=== PATIENT | male | born 2000 | race African-American/Black ===

== ENCOUNTER 2024-03-24 20:39 | Outpatient (CLI) | payer SELFPAY | END 2024-03-24 23:59 | disposition critical access hospital (66) | LOC: EMS 20:39 | DX: F41.9 Anxiety disorder, unspecified (principal); R45.1 Restlessness and agitation; Z78.1 Physical restraint status; F19.90 Other psychoactive substance use, unspecified, uncomplicated | CPT/HCPCS: A0425; A0427 ==

== ENCOUNTER 2024-03-24 21:20 | Emergency (ER) | payer SELFPAY ==
[2024-03-24] MEDS: HALOPERIDOL 5 MG/ML VIAL IM STA (21:30)
[2024-03-24] MEDS: diphenhydrAMINE INJ 50 MG/ML VIAL IM STA (21:30)
[2024-03-24] MEDS: LORazepam 2 MG/ML VIAL IM STA (21:30)
--- NOTE | 2024-03-24 21:36 | ED Physician Documentation ---
History of Present Illness - Stated complaint Stated Complaint: AMS - Chief complaint Chief Complaint: MHE - History obtained from History obtained from: Patient - Additonal information Additional information: 23yM presents after smoking marijuana that was laced with another substance and becoming anxious, agitated. He was unable to calm himself down after doing calming exercises like showering and breathing slowly therefore he called ems. en route patient jumped out of the ambulance and ran away down the highway. police assisted him back into ems rig. patient received 1mg ativan en route. denies si/hi/avh. aoX3. patient arrived in physical restraints, acting bizarrely and intermittently yelling. PD PAST MEDICAL HISTORY - Past Medical History Past Medical History: No - Past Surgical History Past Surgical History: No - Present Medications Home Medications: Ambulatory Orders Medication Instructions Recorded Confirmed No Known Home Medications 03/24/24 03/24/24 - Allergies Allergies/Adverse Reactions: Allergies Allergy/AdvReac Type Severity Reaction Status Date / Time No Known Drug Allergies Allergy Verified 03/24/24 21:34 - Social History Does the pt smoke?: Yes Smoking Status: Current every day smoker Does the pt have substance abuse?: Yes Substance Use and Type: Marijuana PD ED PE NORMAL - Vitals Vital signs reviewed: Yes - General General: Alert and oriented X 3, No acute distress, Well developed/nourished, Other (intoxicated appearing) - HEENT HEENT: Atraumatic, PERRL, EOMI - Neck Neck: Supple, no meningeal sign - Cardiac Cardiac: RRR - Respiratory Respiratory: No respiratory distress, Clear bilaterally - Derm Derm: Normal color, Warm and dry - Extremities Extremities: No deformity - Neuro Neuro: Alert and oriented X 3, No motor deficit, No sensory deficit - Psych Psych: Other (agitated, intermittently yelling with labile affect) Results - Vitals Vitals: Vital Signs - 24 hr 03/24/24 03/24/24 03/24/24 21:29 21:31 21:33 Temperature 37.2 C 37.2 C Heart Rate 130 H 130 H 116 H Respiratory 22 20 17 Rate Blood Pressure 120/104 H 120/104 H 120/104 H O2 Saturation 100 100 98 03/24/24 03/25/24 03/25/24 22:01 00:59 01:21 Temperature 36.2 C L Heart Rate 92 69 66 Respiratory 19 19 14 Rate Blood Pressure 90/55 L 86/57 L 93/58 L O2 Saturation 96 97 97 Oxygen O2 Source Room air - EKG (time done) 2218 EKG releavant findings:: EKG personally interpreted by author of this note. Relevant findings are: Rate: Rate (enter#) (100) Rhythm: Sinus tachycardia [place]: Normal Intervals: Normal [place] QRS: Normal Ischemia: ST elevation c/w repol Computer interpretation: Disagree with computer (no evidence of ischemia) - Labs Labs: Laboratory Tests 03/24/24 03/24/24 21:45 21:45 WBC 6.3 RBC 4.65 L Hgb 12.9 L Hct 39.6 L MCV 85.2 MCH 27.7 MCHC 32.6 RDW 12.4 Plt Count 100 L MPV 12.4 H Neut # (Auto) 4.3 Lymph # (Auto) 1.5 Alfalfa # (Auto) 0.4 Eos # (Auto) 0.1 Baso # (Auto) 0.0 Absolute Nucleated RBC 0.00 Nucleated RBC % 0.0 Sodium 135 Potassium 3.3 L Chloride 103 Carbon Dioxide 24 Anion Gap 8.0 BUN 19 Creatinine 1.1 Estimated GFR (MDRD) 83 L Glucose 145 H Calcium 9.7 Magnesium 1.5 L Total Bilirubin 0.3 AST 15 ALT 11 Alkaline Phosphatase 59 Total Creatine Kinase 146 Total Protein 8.0 Albumin 4.3 Globulin 3.7 Albumin/Globulin Ratio 1.2 Lipase < 10 L TSH 1.17 Salicylates < 1.5 Acetaminophen 0.2 Ethyl Alcohol < 10.0 PD Medical Decision Making - ED course ED course: 23yM p/w intoxication with unknown substance after smoking marijuana laced with another drug. Patient was initially agitated and yelling on arrival and chemical and physical restraint was provided. He calmed soon after and the restraints were removed. With his permission, I d/w his mother regarding patient status. He will likely be able to go home in the morning if he's feeling better. patient endorsed to incoming daytime ED MD at 7am shift change. Departure - Departure Clinical Impression: Anxiety, Agitation, Drug use Condition: Stable Comments: You were seen in the emergency department for intoxication with drugs. If you need help with drug dependence, [facility] drug stabilization facility is a good potential resource. [facility] [address] [place] [address] 7.0 pr Please follow-up with a primary care provider (referral provided) and return to the emergency department if you have any new or worsening symptoms or other concerns. Forms: PCP List
--- NOTE | 2024-03-24 21:38 | ED Physician Documentation ---
Restraint [id number] - Immediate Situation Face to Face Evaluation Date: 03/24/24 Face to Face Evaluation Time: 21:30 Restraint Classification: Violent, physical, chemical (w/physical hold) - Patient's Reaction & Behaviors Safety: Physically safe Verbal: Apologetic (erratic behavior, intermittently yelling then apologetic) Harm: Potential harm to self, Potential harm to others Physical: Aggressive behavior - Behavioral Condition Attitude: Other (erratic) Behavior: Agitated Orientation: Person, Place, Time, Situation Mood: Labile - Evaluation Pertinent History/Illicit Drugs/Medications/Results: See HPI for details. - Plan Need to Initiate/Renew Violent or Chemical Restraint: will dc when safe.
[2024-03-24 22:08] LABS: BASOPHILS % (AUTO) 0.6 %; EOSINOPHILS # (AUTO) 0.1 10^3/uL (0.0-0.7); EOSINOPHILS % (AUTO) 1.7 %; HCT - HEMATOCRIT 39.6 % (42.0-52.0); HGB - HEMOGLOBIN 12.9 g/dL (14.0-18.0); LYMPHOCYTES # (AUTO) 1.5 10^3/uL (1.5-3.5); LYMPHOCYTES % (AUTO) 23.7 %; MEAN CORPUSCULAR HEMOGLOBIN 27.7 pg (27.0-31.0); MEAN CORPUSCULAR HGB CONC 32.6 g/dL (32.0-36.0); MEAN CORPUSCULAR VOLUME 85.2 fL (80.0-94.0); MEAN PLATELET VOLUME 12.4 fL (7.4-11.4); MONOCYTES # (AUTO) 0.4 10^3/uL (0.0-1.0); MONOCYTES % (AUTO) 6.8 %; NEUTROPHILS # (AUTO) 4.3 10^3/uL (1.5-6.6); PLT - PLATELET COUNT 100 10^3/uL (130-450); RED BLOOD COUNT 4.65 10^6/uL (4.70-6.10); RED CELL DISTRIBUTION WIDTH 12.4 % (12.0-15.0); WHITE BLOOD COUNT 6.3 x10^3/uL (4.8-10.8)
[2024-03-24 22:32] LABS: ACETAMINOPHEN 0.2 ug/mL; ALBUMIN 4.3 g/dL (3.2-5.5); ALBUMIN/GLOBULIN RATIO 1.2 (1.0-2.2); ALKALINE PHOSPHATASE 59 IU/L (42-121); ALT ALANINE AMINOTRANSFERASE 11 IU/L (10-60); AST ASPARTATE AMINOTRANSFERASE 15 IU/L (10-42); BILIRUBIN,TOTAL 0.3 mg/dL (0.2-1.0); BUN - BLOOD UREA NITROGEN 19 mg/dL (6-20); CALCIUM 9.7 mg/dL (8.5-10.3); CARBON DIOXIDE - CO2 24 mmol/L (21-32); CHLORIDE 103 mmol/L (101-111); CK- CREATINE KINASE 146 IU/L (30-223); CREATININE 1.1 mg/dL (0.6-1.3); ETOH - ETHANOL < 10.0 mg/dL; GFR - MDRD 83 (>89); GLUCOSE 145 mg/dL (74-104); MAGNESIUM 1.5 mg/dL (1.7-2.3); POTASSIUM 3.3 mmol/L (3.5-4.5); SODIUM 135 mmol/L (135-145)
[2024-03-24 22:36] LABS: LIPASE < 10 U/L (11-82)
[2024-03-24 22:39] LABS: THYROID STIMULATING HORMONE 1.17 uIU/mL (0.34-5.60)
[2024-03-24 22:45] LABS: SALICYLATE < 1.5 mg/dL
[2024-03-25] MEDS: SODIUM CHLORIDE 0.9% 1,000 ML IV STA (00:57)
--- NOTE | 2024-03-25 07:42 | ED Physician Documentation ---
ED Addendum - Addendum Addendum: 03/25/24 07:40 The patient reportedly has been calm and resting overnight after being medicated for his anxiety at his consent and request. Apparently was having anxiety and agitation related to cannabis use. Presumably some contaminants in there as well though could have been just primarily the cannabis as it is not a common Ingestant for him. He is doing well this morning. He is feeling relaxed and wishing to go home. He had not had any reported self-harm ideation and denies any at this time. I would not anticipate the need for any prescription medication but I would expect short-term side effects to be easing off. Disposition: The patient discharged home in stable condition. Diagnoses: 1. Drug side effect 2. Anxiety and agitation
[2024-03-25 07:57] VITALS: BP 120/77; O2SAT 99
== END 2024-03-25 07:59 | disposition home or self-care (01) ==
LOC: ED 21:20
DX: F41.9 Anxiety disorder, unspecified (principal); R45.1 Restlessness and agitation; T50.905A Adverse effect of unspecified drugs, medicaments and biological substances, initial encounter; F19.90 Other psychoactive substance use, unspecified, uncomplicated; F17.200 Nicotine dependence, unspecified, uncomplicated; Z78.1 Physical restraint status
CPT/HCPCS: 36415; 80053; 80143; 80179; 82077; 82550; 83690; 83735; 84443; 85025; 93005; 96372; 99284; 99285